=== PATIENT | male | born 1945 | race Caucasian/White ===

== ENCOUNTER 2022-12-14 08:16 | Observation (INO) | payer OTHER ==
[2022-12-14 08:30] VITALS: RESP 18; BMI 27.1
[2022-12-14] MEDS ORDERED: ACETAMINOPHEN 1000 MG/100 ML BAG IVPB ONE (09:34)
[2022-12-14] MEDS ORDERED: ACETAMINOPHEN INJECTION 100 ML IVPB ONE (09:45)
[2022-12-14 10:01] LABS: BASO % 0.3 % (0-2.0); EOS % 0.7 % (0-4.5); HEMATOCRIT 39.3 % (35.4-49); HEMOGLOBIN 13.1 GM/dL (11.7-16.9); LYMPH % 5.3 % (8-40); MCH 29.6 pg (25.7-33.7); MCHC 33.4 g/dl (32.0-35.9); MEAN CELL VOLUME 88.5 fl (80-96); MEAN PLT VOLUME 9.3 fl (7.5-11.1); MONO % 7.3 % (3.8-10.2); NEUT % 86.4 % (42.8-82.8); PLATELET COUNT 327 10^3/uL (134-434); RBC 4.44 M/mm3 (4.00-5.60); WHITE BLOOD COUNT 15.1 K/mm3 (4.0-10.0)
[2022-12-14 10:15] LABS: CHLORIDE 92 mmol/L (98-107); POTASSIUM 4.7 mmol/L (3.5-5.1); SODIUM 130 mmol/L (136-145)
[2022-12-14 10:19] LABS: ALBUMIN 2.9 g/dl (3.4-5.0); ANION GAP 11 mmol/L (4-13); BLOOD UREA NITROGEN 29.9 mg/dL (7-18); CO2 27 mmol/L (21-32)
[2022-12-14 10:23] LABS: BILIRUBIN,TOTAL 0.6 mg/dL (0.2-1); CREATININE 1.3 mg/dL (0.55-1.3); SGOT/AST 11 U/L (15-37); SGPT/ALT 16 U/L (13-61)
[2022-12-14 10:24] LABS: TOT PROT 6.8 g/dl (6.4-8.2)
[2022-12-14 10:25] LABS: ALK PHOS 66 U/L (45-117)
[2022-12-14 10:26] LABS: GLUCOSE,RANDOM 407 mg/dL (74-106)
[2022-12-14] MEDS ORDERED: SODIUM CHLORIDE 1,000 ML IV STA (10:32)
[2022-12-14 11:19] LABS: ERYTHROCYTE SEDIMENTATION RATE 80 mm/hr (0-20)
[2022-12-14 13:30] LABS: URINE APPEARANCE CLEAR; URINE BILIRUBIN NEGATIVE (NEGATIVE); URINE COLOR YELLOW; URINE GLUCOSE (UA) 3+ (NEGATIVE); URINE KETONE NEGATIVE (NEGATIVE); URINE LEUK ESTERASE NEGATIVE (NEGATIVE); URINE NITRITE NEGATIVE (NEGATIVE); URINE PROTEIN NEGATIVE (NEGATIVE); URINE UROBILINOGEN 0.2 mg/dL (0.2-1.0)
[2022-12-14] MEDS ORDERED: INSULIN REGULAR HUMAN 100 UNITS/ML *VIAL SQ ONE (14:48)
[2022-12-14] MEDS ORDERED: ACETAMINOPHEN 1000 MG/100 ML BAG IVPB PRN (15:52)
[2022-12-14] MEDS ORDERED: INSULIN (NOVOLOG) ASPART 100 UNITS/ML 10ML VIAL ONE ×2 (18:35→22:08)
[2022-12-14] MEDS: INSULIN SLIDING SCALE (NOVOLOG) 1 VIAL SQ SCH ×2 (18:39→22:17)
[2022-12-14] MEDS: CARVEDILOL 3.125 MG TABLET (FP) PO SCH (21:18)
[2022-12-14] MEDS: predniSONE 10 MG TABLET (UD) PO SCH (21:18)
[2022-12-14] MEDS: GABAPENTIN 300 MG CAPSULE PO SCH (21:18)
[2022-12-14] MEDS: HEPARIN NA (PORCINE) 5,000 UNITS/ML 1ML VIAL SQ SCH (21:18)
[2022-12-14] MEDS ORDERED: INSULIN (LEVEMIR) 100 UNITS/ML UNITS SQ SCH (22:00)
[2022-12-14] MEDS ORDERED: ATORVASTATIN CA 80 MG TABLET (FP) PO SCH (22:00)
[2022-12-15] MEDS ORDERED: INSULIN (NOVOLOG) ASPART 100 UNITS/ML 10ML VIAL ONE ×2 (05:29→17:22)
[2022-12-15] MEDS: HEPARIN NA (PORCINE) 5,000 UNITS/ML 1ML VIAL SQ SCH ×2 (05:33→14:20)
[2022-12-15] MEDS: INSULIN SLIDING SCALE (NOVOLOG) 1 VIAL SQ SCH ×3 (06:07→17:46)
[2022-12-15] MEDS ORDERED: TAMSULOSIN HCL 0.4 MG CAP PO SCH (08:30)
[2022-12-15 09:05] LABS: BASO % 0.2 % (0-2.0); EOS % 0.1 % (0-4.5); HEMATOCRIT 39.7 % (35.4-49); HEMOGLOBIN 13.2 GM/dL (11.7-16.9); LYMPH % 7.4 % (8-40); MCH 29.4 pg (25.7-33.7); MCHC 33.2 g/dl (32.0-35.9); MEAN CELL VOLUME 88.4 fl (80-96); MEAN PLT VOLUME 9.3 fl (7.5-11.1); NEUT % 86.3 % (42.8-82.8); PLATELET COUNT 387 10^3/uL (134-434); RBC 4.49 M/mm3 (4.00-5.60); RDW 13.7 % (11.9-15.9); WHITE BLOOD COUNT 19.7 K/mm3 (4.0-10.0)
[2022-12-15 09:23] LABS: POTASSIUM 4.4 mmol/L (3.5-5.1)
[2022-12-15 09:33] LABS: ALBUMIN 2.8 g/dl (3.4-5.0); BLOOD UREA NITROGEN 26.8 mg/dL (7-18)
[2022-12-15 09:35] LABS: CALCIUM 9.3 mg/dL (8.5-10.1)
[2022-12-15 09:36] LABS: PHOSPHOROUS 3.9 mg/dL (2.5-4.9)
[2022-12-15 09:42] LABS: BILIRUBIN,TOTAL 0.4 mg/dL (0.2-1)
[2022-12-15] MEDS: GABAPENTIN 300 MG CAPSULE PO SCH (09:49)
[2022-12-15] MEDS: CARVEDILOL 3.125 MG TABLET (FP) PO SCH (09:49)
[2022-12-15] MEDS: predniSONE 10 MG TABLET (UD) PO SCH (09:49)
[2022-12-15] MEDS ORDERED: ASPIRIN COATED 81 MG TABLET.EC PO SCH (10:00)
[2022-12-15 14:47] VITALS: BP 124/61; PULSE 82; TEMP 98
[2022-12-21] MEDS ORDERED: predniSONE 10 MG TABLET (UD) PO SCH (10:00)
[2022-12-28] MEDS ORDERED: predniSONE 5 MG TABLET (UD) PO SCH (10:00)
== END 2022-12-15 18:53 | disposition home or self-care (01) ==
LOC: JER 08:16 → INTOOBSV 13:57 → UNDOADMOB 13:57 → JERBED 13:57 → J8W 15:42 → JERBED 15:42 → J8W 12-15 14:17
PROVIDERS: ADMIT Internal Medicine; ATTEND Nurse Practitioner Acute Care
PROC: 3E033NZ Introduction of Analgesics, Hypnotics, Sedatives into Peripheral Vein, Percutaneous Approach (ICD-10-PCS; principal; 2022-12-15)
PROC: 3E023GC Introduction of Other Therapeutic Substance into Muscle, Percutaneous Approach (ICD-10-PCS; 2022-12-15)
PROC: 3E013VG Introduction of Insulin into Subcutaneous Tissue, Percutaneous Approach (ICD-10-PCS; 2022-12-15)
PROC: 3E0337Z Introduction of Electrolytic and Water Balance Substance into Peripheral Vein, Percutaneous Approach (ICD-10-PCS; 2022-12-15)
DX: M35.3 Polymyalgia rheumatica (principal); E11.65 Type 2 diabetes mellitus with hyperglycemia; D72.829 Elevated white blood cell count, unspecified; M54.2 Cervicalgia; R20.2 Paresthesia of skin; Z88.8 Allergy status to other drugs, medicaments and biological substances; M25.551 Pain in right hip; M25.552 Pain in left hip; M25.511 Pain in right shoulder; M25.512 Pain in left shoulder
CPT/HCPCS: 36415; 70450-TC; 71045-TC-FY; 72125-TC; 72156-TC; 80053; 81003; 82550; 82962; 83036; 83735; 84100; 84484; 85025; 85651; 86140; 87086; 93005; 93010; 96372; 96374; 96375; 97116-GP; 97161-GP; 99285-25; G0378; J1644